=== PATIENT | female | born 1990 | race Caucasian/White ===

== ENCOUNTER → 2017-10-20 10:48 | Outpatient (CLI) | payer OTHER, SELFPAY ==
[2017-10-24 09:05] LABS: HPV Reflexed? NOT INDICATED
== END ==
PROVIDERS: Visit Provider Obstetrics & Gynecology
DX: Z12.4 Encounter for screening for malignant neoplasm of cervix (principal)
CPT/HCPCS: 88175; G0145

== ENCOUNTER → 2017-11-19 14:02 | Outpatient (CLI) | payer OTHER, SELFPAY ==
--- NOTE | 2017-11-19 | ECC_PTH ---
PATIENT: JONELLE MIN LOC: [facility] U#:[id number] AGE/SX: 35/F ROOM: RE11/19/[address]: Dr. Jen Shah MD : 1990 BED: DIS: SPEC #: [id number] RECD: 11/19/17 14:53 STATUS: BETH PARRIS #: [id number] ROVERTO: 11/19/17 00:[address]: Jen Shah DEPT: SURGICAL PATHOLOGY RECD BY: Nathan Brar ENTERED: 11/19/17 14:54 SP TYPE: ECC FABY DR: Dr. 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 Fragments of benign endocervical epithelium and mucous. SJ:savi 11/20/17 COMMENT Immunohistochemistry ([id number]) for surrogate HPV marker (p16) supports the above diagnosis. Please make reference to previous specimen ([id number]) cervix, LEEP conization with diagnosis of mild squamous dysplasia, CHANDRAKANT I. MICROSCOPIC DESCRIPTION Slides are reviewed. GROSS DESCRIPTION Received in fixative is one container labeled with the patient's name and designated ECC. The specimen consists of multiple fragments of love hemorrhagic mucoid tissue that in aggregate measure 2 x 2 x 0.1 cm. The specimen is totally submitted in one cassette. / SJ:savi 11/19/17 TC:5 CPT: 33183
--- NOTE | 2017-11-19 | IMM_PTH ---
PATIENT: JONELLE MIN LOC: [facility] U#:[id number] AGE/SX: 35/F ROOM: RE11/19/[address]: Dr. Jen Shah MD : 1990 BED: DIS: SPEC #: [id number] RECD: 11/20/17 11:33 STATUS: BETH REQ #: [id number] ROVERTO: 11/19/17 00:[address]: Jen Shah DEPT: IMMUNOHISTOCHEMISTRY RECD BY: Niki Conde ENTERED: 11/20/17 11:33 SP TYPE: IMMUNO OTHR DR: Dr. Jay Cristobal DO Tissues: Endocervical Procedures: p16 (initial) KI-67 (add) PHYSICIAN & INSTITUTION [place] [id number] SPECIMEN INFORMATION: Tissue Source: [facility] Clinical Info: LGSIL, mild dysplasia Specimen Number: [id number] CPT code: 48737, 81319 METHODOLOGY: Deparaffinized sections of prefer/formalin-fixed tissue or PAP/DQ stained slides are incubated with monoclonal/polyclonal antibodies/oligonucleotide probes. Localization is made via biotin free immunoperoxidase method. Appropriate controls are performed and reacted as expected. Results on target cell population are indicated in the following table: RESULTS: ANTIBODY / CLONE RESULT P16 (E6H4) positive, block staining Ki-67 (30-9) positive, moderate These tests were developed and their performance characteristics determined by [facility]. They may not have been cleared or approved by the [place] Food and Drug Administration. The FDA has determined that such clearance or approval is not necessary. INTERPRETATION: ECC: Detached and unoriented fragments of squamous epithelium with moderate squamous dysplasia. SJ:savi 11/21/17
== END ==
PROVIDERS: Family Provider Student in an Organized Health Care Education/Training Program; PCP Student in an Organized Health Care Education/Training Program; Visit Provider Obstetrics & Gynecology
DX: R87.612 Low grade squamous intraepithelial lesion on cytologic smear of cervix (LGSIL) (principal)
CPT/HCPCS: 88305; 88341; 88342